=== PATIENT | male | born 1960 | race Caucasian/White ===

== ENCOUNTER 2023-03-15 08:53 | Outpatient (AMB) | payer BC, SELFPAY ==
--- NOTE | 2023-03-15 09:11 | A.SPINEOV_ITS ---
Intake Intake Visit Reasons: back pain Intake Note: Mr. Ramirez is here today c/o right-sided low back pain and difficulty ambulating. MRI done @ [facility]/brought disc. 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 He tells me that about 2 years ago he started to notice some numbness on the left side of his flank. It was subtle and really not all that bothersome but eventually after reporting it to a number of his physicians he entered into a workup which included MRI imaging which showed what sounds like edema within the spinal cord or fluid collection/syrinx. I do not have the MRIs to confirm. He was seen by Dr. Castro in [place] and after going back and forth about it was eventually offered a C7-T4 bilateral laminectomy decompression and removal of arachnoid cysts and he chose to proceed with surgery in May of 2021. I do not have the operative reports to review at this time. The patient tells me that the surgery went uneventful. Postoperatively had a brief period of time where he did have some numbness of his legs but that went away and about 8 or 9 months after the surgery reports excellent resolution of his symptoms. He was walking well and otherwise doing okay. Sometime around July of this year he started to notice weakness and numbness of his legs which gradually crept up to it this level of his chest. His gait was unsteady and eventually he started using a walker. He saw Dr. Castro again and it was found that his syrinx collections were starting to get larger. He was sent to see at [facility] for consideration of a syrinx shunt. He was told that the likely successful outcome of surgery was less than 50% and that Dr. Vasquez did not feel that they would be meaningful improvement from an operation. He had a friend of his have a surgery with Dr. Lucio a number of years ago and it was recommended he come to see us for evaluation. The patient tells me at this point his symptoms are not getting worse. Sometime around January so things stabilized but are not getting better. He does not have any issues with his bladder. He does have constipation. He does not report any symptoms in his upper arms except some slight numbness of his right arm but no weakness. He does report that he had a fall off a ladder about 3 months before all this started back in 2021 but it was not a significant fall but he did slam onto his back off a step ladder. Denied having any fevers, bleeding disorders, vaccinations etc. around the time that all the started. PMH: He tells me has high cholesterol and hypertension but is otherwise healthy. Social hx: He does not smoke, denies drinking or any substance abuse Medications: He takes a cholesterol pill in a hypertensive fill but he could not remember the name Allergies: Penicillin Physical exam: He walks with a walker, he is able stand up out of a chair on his own but is off balance, positive Romberg test, he has significant spasticity of the lower extremities. He has full strength of bilateral upper extremities with normal reflexes, he has 4-5 weakness of his iliopsoas bilaterally but distally in the quadriceps tibialis and gastrocnemius he has full strength. He is hyperreflexic with clonus in the lower extremities. He has loss of sensation at about T4 down. Imaging review: I have thoracic and cervical MRIs to review from 2022 and the show a complicated septated syrinx starting with mild dilation of the central canal of the spinal cord at C2, significantly expanding around the level of C7 extending down in various levels of septated collections with significant dilation all the way down to the lower thoracic cord. According to the reports these thoracic syrinx collections are expanding. There are postsurgical changes from C7-T4 seen in the posterior musculature. Impression: 62-year-old male who presents with syringomyelia, possibly posttraumatic but at this time no clear cause, getting progressively worse with numbness and weakness of his legs with sensory level at about T4. He underwent a C7-T4 decompression with removal of arachnoid cysts apparently sometime in May of 2021. This is according to a note seen on some kind of operative report or diagnosis that he had listed with him on 1 of [facility]. He did well after that surgery but it is around 8 or 9 months ago started to develop worsening of the symptoms as outlined above. He has had expansion of the syrinx along multiple segments, has been seen by his surgeons in [place], and it was felt that there was nothing they could do for him. His situation is complicated obviously and there is no easy answer. I am going to gather the ope rative reports, the records from the office visits of and Dr Vasquez, as well as the preoperative MRIs. I will review them with Dr. Lucio and get back to the patient as to whether there is anything a things we can do to help him. Thank you for allowing us to care for your patient. The total time spent with this visit with this patient was 65 minutes reviewing history, physical exam, cervical and thoracic imaging review, and implementation of treatment plan or further diagnostic testing Ascencion Lucio MD,PhD [facility] Coding Level of Care Code New Pt Level 5 (94662) Diagnoses Syrinx of spinal cord G95.0
== END 2023-03-15 09:48 | disposition home or self-care (01) ==
PROVIDERS: Visit Provider Physician Assistant
DX: G95.0 Syringomyelia and syringobulbia (principal)
CPT/HCPCS: 99205

== ENCOUNTER → 2023-03-15 08:53 | Outpatient (BNVA) | payer BC, SELFPAY | PROVIDERS: Visit Provider Physician Assistant ==